=== PATIENT | female | born 1975 | race Caucasian/White ===

== ENCOUNTER → 2023-10-19 08:29 | Outpatient (REF) | payer OTHER, SELFPAY | LOC: WDC 08:29 | PROVIDERS: ATTENDING PHYSICIAN Obstetrics & Gynecology | DX: Z12.31 Encounter for screening mammogram for malignant neoplasm of breast (principal) | CPT/HCPCS: 77063; 77067 ==

== ENCOUNTER 2024-10-10 00:13 | Emergency (ER) | payer OTHER, SELFPAY ==
[2024-10-10 00:56] VITALS: BP 105/69
[2024-10-10 01:00] VITALS: BP 98/54
[2024-10-10 01:15] VITALS: BP 101/64
--- NOTE | 2024-10-10 01:37 | ED.GENMED ---
History of Present Illness
General
Chief Complaint: Numbness
Source: patient and previous radiology exam (Unremarkable CT of the head 2013 and 2009)
Exam Limitations: none
Time Seen by Provider: 10/10/24 01:22
Nursing documentation reviewed up to this point in time: agreed with
History of Present Illness
History of Present Illness:
This is a 49-year-old woman with history of hypothyroidism, maintained on Synthroid. She admits to ongoing moderate stress at work, works for a [employer]. Over the past several days she has had lower substernal chest discomfort
which seems worse when she is hunched over at her desk. Tonight she developed right-sided headache, initially mild in nature but has persisted and seem to persist despite attempting to fall asleep. She then became worried when headache persisted
and she developed some tingling of her right leg and then noticed a cold sensation of her right hand and then mild tingling right side of her face. This prompted ED visit. She denies weakness nor numbness. No neck pain nor back pain. No vision
difficulty, no nausea nor vomiting. No cough no shortness of breath, no palpitations, no dizziness nor lightheadedness. No fever no chills.
She has not taken anything for discomfort.
She does admit to occasional headaches and was evaluated in this ED 2009 as well as 2013 with headache after minor head trauma. Unremarkable CT of the head on both occasions.
Last menstrual period 3 to 4 months ago she states she is perimenopausal. Denies risk of .
Past History
Past History
ED Past Medical History: Hypothyroidism
ED Past Surgical History: Orthopedic (Knee surgery x 2) and Other (Thyroidectomy)
Social History
Tobacco: Non-smoker
Alcohol: None
Drug: None
Living: with family
Employment: Employed
Family History
Family History: Other (Noncontributory)
Phy Exam
Physical Exam
Physical Exam:
GENERAL: 49-year-old woman appears her stated age, awake and alert, pleasant, easily communicative and in no acute distress.
EYE: pupils equal and reactive. Extraocular muscles intact. Discs are sharp bilaterally. Anicteric
NECK: Supple, nontender, no meningismus, no significant adenopathy.
ENT: posterior pharynx is clear, oral mucosa is moist. TM clear b/l, nares patent.
CARDIAC: Regular rate and rhythm. no murmur.
LUNGS: Clear breath sounds bilaterally, no acute respiratory distress, no wheezes/rales/rhonchi
ABDOMEN: Soft, nondistended, without focal tenderness, no r/g, no cvat. normoactive BS.
NEUROLOGICAL: Alert and oriented x3, no focal neuro deficits. Cranial nerves II through XII grossly intact. Motor strength 5/5 bilaterally. Gross sensation intact. NIH stroke scale of 0. Gait is arevalo and steady.
SKIN: Warm and dry, normal color, skin intact. No rash.
MUSCULOSKELETAL: No C/C/E. peripheral pulses are full and equal b/l. No palpable tenderness.
PSYCH: Normal and appropriate interaction.
Scores
NIH Stroke Score
Level of Consciousness: 0 - Alert
LOC Questions: 0-Answers both correctly
LOC Commands: 0-Performs both correctly
Best Horizontal Gaze: 0-Normal
Visual Howe: 0=Normal, no visual loss
Facial Palsy: 0=Normal, symmetrical
Motor - Right Arm: 0=No drift 10 seconds
Motor - Left Arm: 0=No drift 10 seconds
Motor - Right Le-No drift 5 seconds
Motor - Left Le-No drift 5 seconds
Limb Ataxia: 0-Absent
Sensation: 0-Normal
Best Language: 0-No aphasia
Dysarthria: 0-Normal
Extinction and Inattention: 0-No abnormality
Total Score:: 0
Course
Orders/Labs/Results
Orders:
Orders
10/10/24 00:47
CT Head W/o Iv Contrast Urgent
Comment:
Reason For Exam: r sided numbness
10/10/24 01:27
Electrocardiogram (*1) Urgent
Reason for Study: TIA/Stroke
EKG- Treatment ONCE
10/10/24 01:39
Test Result ONCE
10/10/24 01:47
0.9% Sodium Chloride 1000 ml [Nss] 1,000 ml IV BOLUS
Diphenhydramine [Benadryl] 25 mg IV NOW STA
Prochlorperazine [Compazine] 10 mg IV NOW STA
10/10/24 01:51
Complete Blood Count/With Diff Urgent
Comprehensive Metabolic Panel Urgent
HCG, Serum Qualitative Screen Urgent
Lipase Urgent
TSH Reflex To Free T4 Urgent
Troponin I Urgent
10/10/24 03:41
Ketorolac [Toradol] 30 mg IV NOW STA
CR Chest - 2 Views Urgent
Comment:
Reason For Exam: right anterior CP
Abnormal Lab Results
10/10/24
01:51
MCH 31.5 H pg
(27.0-31.0)
Absolute Monos (auto) 0.7 H 10^3/uL
(0.1-0.6)
Monocytes % 10.9 H %
(1.7-9.3)
Glucose 110 H mg/dl
(70-99)
10/10/24 01:51
10/10/24 01:51
Vital Signs
Initial and Last Documented VS:
Initial Vital Signs
Temp
98.4 F
10/10/24 00:32
Last Documented Vital Signs
Temp Pulse Resp BP
98.4 F 64 16 95/55
10/10/24 00:32 10/10/24 03:45 10/10/24 03:45 10/10/24 03:00
MDM/Problems Addressed
Differential Diagnosis Includes:
Concern for complex migraine headache, other consideration is TIA/CVA. Concern for ACS, GERD.
CT of the head initial evaluation by myself appears within normal limits. Awaiting official report.
Will check EKG, labs.
If EKG unremarkable, will plan for typical migraine medication cocktail.
*Radiology
Radiology exam reviewed: preliminary read by ED provider (Chest x-ray is unremarkable.) and radiology read reviewed (CT of the head was unremarkable)
*Pulse Oximetry
Patient hypoxic: no
*EKG
Interpreted by ED Provider?: Yes
Interpretation: normal
Comparison EKG: no comparison EKG present
Rate: normal
Rhythm: sinus
[place]: normal axis
Interval: normal interval
QRS Pattern: normal QRS
Ischemia: no ischemia
*Tile Layer Supervisor Interpretation
Rate: normal
Interpretation: normal
Rhythm: sinus
*Critical Care Note
Total Time (30-74mins, 75-104mins- exclusive of procedures): Not Applicable
Update Note
Update Note:
03:40
Patient resting comfortably. Headache has near completely resolved. No further paresthesia.
She continues with some pinpoint right anterior lower chest pain that is reproducible in nature. She believes maybe she had bumped her chest. Pain is not worsened with deep breath and she continues to deny shortness of breath.
Will trial an IV dose of Toradol and check chest x-ray.
Labs are unremarkable.
05:00
Patient feeling improved after IV Toradol. No further headache, no further chest pain.
Chest x-ray is unremarkable.
Will discharge to home with recommendations for prompt follow-up with PCP for recheck.
ED Attending Note
-
Portions of this chart may have been created with voice recognition software.� Occasional wrong word or��sound alike� substitutions may have occurred due to the inherent limitations of voice recognition software.
Discharge Plan
Departure
Patient Disposition: Home (Routine Discharge)
Date of Disposition: 10/10/24
Time of Disposition: 05:01
Patient with high blood pressure during this ER visit?: No
Condition: Good
Discharge Problem:
Headache, migraine, Anterior chest wall pain
Instructions: Costochondritis, Migraine in adults
Referrals:
Daja Tinajero CRNP [Family Provider] - Call in 1-3 days for appt
Interventions
Interventions:
*Risk Screen - Suicide Last Done: 10/10/24 00:32
ED- Neurological Assessment Last Done: 10/10/24 01:24
Discharge Date and Time
Print Language: SWEDISH
[2024-10-10 02:00] VITALS: BP 101/51
[2024-10-10 02:02] LABS: % Basophils 0.5 % (0-2); % Eosinophils 3.5 % (0-6); % Immature Granulocytes 0.2 % (0-0.5); % Lymphocytes 35.4 % (20.5-51.1); % Monocytes 10.9 % (1.7-9.3); % Neutrophils 49.5 % (42.2-75.2); Absolute Eosinophils 0.2 10^3/uL (0-0.7); Absolute Lymphocytes 2.2 10^3/uL (1.2-3.4); Absolute Monocytes 0.7 10^3/uL (0.1-0.6); Absolute Neutrophils 3.1 10^3/uL (1.4-6.5); Hematocrit 38.2 % (37.0-47.0); Hemoglobin 13.4 g/dL (12.0-16.0); Mean Corp Hgb Conc. 35.1 g/dL (33.0-37.0); Mean Corpuscular Hgb 31.5 pg (27.0-31.0); Mean Corpuscular Volume 89.9 fL (81.0-99.0); Mean Platelet Volume 9.9 fL (7.4-10.4); Nucleated Red Blood Cells % 0 %; Platelet Count 236 10^3/uL (130-400); Red Blood Cell Count 4.25 10^6/uL (4.20-5.40); Red Cell Dist. Width 12.8 % (11.5-14.5); White Blood Cell Count 6.3 10^3/uL (4.8-10.8)
[2024-10-10] MEDS: COMPAZINE 10 MG IV (02:07)
[2024-10-10] MEDS: NSS 1000 IV (02:07)
[2024-10-10] MEDS: BENADRYL 25 MG IV (02:07)
[2024-10-10 02:14] LABS: HCG, Serum Qualitative Screen Negative
[2024-10-10 02:16] LABS: ALT (SGPT) 30 U/L (0-35); AST (SGOT) 22 U/L (14-36); Albumin 3.9 g/dl (3.5-5.0); Alkaline Phosphatase 57 U/L (38-126); Blood Urea Nitrogen 17 mg/dl (7-17); Calcium 9.3 mg/dl (8.4-10.2); Carbon Dioxide 27 mmol/L (22-30); Chloride 107 mmol/L (98-107); Glucose 110 mg/dl (70-99); Lipase 93 U/L (23-300); Sodium 141 mmol/L (135-145); Total Bilirubin 0.6 mg/dl (0.2-1.3); Total Protein 6.4 g/dl (6.3-8.2); eGFR > 60.00
[2024-10-10 02:25] LABS: Troponin I < 0.012 ng/ml
[2024-10-10 03:00] VITALS: BP 95/55
[2024-10-10] MEDS: TORADOL 30 MG IV (04:25)
[2024-10-10 04:33] LABS: TSH Reflex To Free T4 1.81 uIU/ml (0.47-4.68)
[2024-10-10 05:30] VITALS: BP 98/65
== END 2024-10-10 05:36 | disposition home or self-care (01) ==
LOC: EMR 00:13
PROVIDERS: EMERGENCY PHYSICIAN Emergency Medicine; FAMILY PHYSICIAN Nurse Practitioner Adult Health
DX: G43.909 Migraine, unspecified, not intractable, without status migrainosus (principal); R07.89 Other chest pain; R20.2 Paresthesia of skin; E03.9 Hypothyroidism, unspecified; Z79.899 Other long term (current) drug therapy; Z56.6 Other physical and mental strain related to work; Z91.040 Latex allergy status
CPT/HCPCS: 99284; 96374; 96375 ×2; 96361; 70450; 71046; 80053; 83690; 84443; 84484; 84703; 85025; 93005

== ENCOUNTER → 2024-10-24 08:18 | Outpatient (REF) | payer OTHER, SELFPAY | LOC: WDC 08:18 | PROVIDERS: ATTENDING PHYSICIAN Obstetrics & Gynecology; FAMILY PHYSICIAN Nurse Practitioner Adult Health | DX: Z12.31 Encounter for screening mammogram for malignant neoplasm of breast (principal) | CPT/HCPCS: 77063; 77067 ==